=== PATIENT | male | born 1975 | race Caucasian/White ===

== ENCOUNTER 2017-06-25 05:56 | Outpatient (CLI) | payer OTHER ==
--- NOTE | 2017-06-25 09:43 | CT Report ---
CT OF THE ABDOMEN WITHOUT CONTRAST: 06/25/2017 CLINICAL INDICATION: Melena. TECHNIQUE: Axial CT images of the abdomen were obtained without oral or intravenous contrast, as requ ested. No previous CT is available for comparison. FINDINGS: Limited evaluation of the lung bases is unremarkable. ABDOMEN: The liver, spleen, pancreas, kidneys and adrenal glands appear unremarkable, allowing for th e lack of intravenous contrast. No bowel dilatation, free gas, or free fluid is present. No abdominal adenopathy is seen. The osseous structures appear unremarkable. IMPRESSION: NORMAL CT OF THE ABDOMEN WITHOUT ORAL OR INTRAVENOUS CONTRAST. In accordance with CT protocol optimization, one or more of the following dose reduction techniques w ere utilized for this exam: automated exposure control, adjustment of mA and/or KV based on patient size, or use of iterative reconstructive technique. JOB #: [id number] EXT JOB #:[id number]
== END 2017-06-25 05:57 | disposition home or self-care (01) ==
LOC: DI 05:56
PROVIDERS: ATTEND Internal Medicine
DX: K92.1 Melena (principal)
CPT/HCPCS: 74150